=== PATIENT | female | born 1945 | race Caucasian/White ===

== ENCOUNTER 2017-02-16 08:59 | Day surgery (SDC) | payer OTHER, BC ==
[2017-02-16] MEDS ORDERED: LIDOCAINE 2% JELLY 20 ML (UROJECT) ONE (09:29)
[2017-02-16] MEDS ORDERED: BUPIVACAINE/EPI 0.25% 30 ML SDV ONE ×2 (09:30→11:19)
[2017-02-16] MEDS ORDERED: LIDOCAINE 1% 2 ML INJ ONE (09:38)
[2017-02-16] MEDS ORDERED: PROPOFOL 200 MG/20 ML VIAL ONE (09:40)
[2017-02-16] MEDS ORDERED: fentaNYL 100 MCG/2 ML INJ ONE (09:40)
[2017-02-16] MEDS ORDERED: LIDOCAINE 1% 5 ML SDV ID PRN (10:12)
[2017-02-16] MEDS ORDERED: LR 1,000 ML IV ONE (10:12)
[2017-02-16] MEDS ORDERED: MIDAZOLAM 2 MG/2 ML VIAL ONE (10:44)
--- NOTE | 2017-02-16 17:33 | GOP ---
[f rep st] OPERATIVE REPORT DATE OF OPERATION: 02/16/2017 SURGEON: Ash Cintron MD ORDINARY SEAMAN: None. ANESTHESIA: General endotracheal per Dr. Weaver. PREOPERATIVE DIAGNOSIS: Symptomatic internal and external hemorrhoids. POSTOPERATIVE DIAGNOSIS: Symptomatic internal and external hemorrhoids. PROCEDURE PERFORMED: Closed hemorrhoidectomy x2 columns. FINDINGS: Inflamed right anterior and left lateral hemorrhoids; internal and external columns excis ed completely. SPECIMENS: Hemorrhoids x2. ESTIMATED BLOOD LOSS: 10 cc. DESCRIPTION OF PROCEDURE: The patient was greeted in the preoperative suite. Once again, risks, be nefits, and alternatives were discussed. Consent was signed. She was then brought back to the oper ative suite, where anesthetic was successfully induced with her on her medical gurney. After succes sful induction, she was then flipped into the prone position. Once in the prone position, with all pressure points appropriately padded, her anorectal area was prepped and draped in typical sterile f ashion. Prior to doing so, a [employer] time-out was performed. Once successfully p repped and draped, I turned my attention first toward the left lateral column, which had a fairly la rge skin tag and external component. Placing my a bivalve retractors successfully into the patient' s anus, I identified what appeared to be a hypertrophied internal component, as well. Placing a sti tch of 3-0 Vicryl at the superior portion of the column, I successfully ligated the proximal portion . Using a 15-blade scalpel, I outlined my area of excision, which was completed with Metzenbaum sci ssors, taking care to not enter the underlying sphincter complex. The specimen was then passed off. Hemostasis was achieved with gentle pressure and electrocautery. Once hemostasis was assured, I c losed the overlying anoderm with a running 3-0 stitch already placed, noting excellent reapproximati on and good hemostasis. After this was done, I then turned my attention toward the right anterior h emorrhoid, which was enlarged with a fairly large external component, as well. In the same fashion, on the superior portion of the pile, I placed an interrupted 3-0 Vicryl stitch. I then sharply exc ised the hemorrhoid, including both the internal and external components, with a combination of a 15 -blade scalpel and Metzenbaum scissors. Hemostasis was achieved in the same fashion. The anoderm w as then reapproximated with a running 3-0 Vicryl stitch. Hemostasis was assured in both cavities. I then created a field block consisting of 0.25% Marcaine with epinephrine. After this was done, I placed a thrombin-soaked lidocaine piece of Gelfoam into the patient's anorectal area, using the Pra tt bivalve retractor. I then removed all my retractors, once again noted that hemostasis was good, reduced my retraction, and a sterile dressing was placed. The patient was then flipped back onto [facility], extubated, and taken to the PACU in satisfactory condition. DRAINS: None. COUNTS: All counts were reported as correct x2. /[id number]/MODL
== END 2017-02-16 14:00 | disposition home or self-care (01) ==
LOC: FSGY 08:59
PROVIDERS: ATTEND Surgery
PROC: 06BY3ZC Excision of Hemorrhoidal Plexus, Percutaneous Approach (ICD-10-PCS; principal; 2017-02-16 10:15)
DX: K64.4 Residual hemorrhoidal skin tags (principal); K64.8 Other hemorrhoids; I10 Essential (primary) hypertension; K21.9 Gastro-esophageal reflux disease without esophagitis
CPT/HCPCS: J2250; J2704; J3010

== ENCOUNTER → 2018-03-07 | Outpatient (CLI) | payer OTHER, BC | LOC: BRMIMAGING 09:29 | PROVIDERS: ATTEND Internal Medicine | DX: Z13.820 Encounter for screening for osteoporosis (principal); M85.89 Other specified disorders of bone density and structure, multiple sites ==

== ENCOUNTER → 2018-03-09 | Outpatient (CLI) | payer OTHER, BC | LOC: BHFA 15:30 | PROVIDERS: ATTEND Internal Medicine Cardiovascular Disease | DX: I73.9 Peripheral vascular disease, unspecified (principal) ==

== ENCOUNTER → 2018-03-31 | Outpatient (CLI) | payer OTHER, BC | LOC: BHLMT 09:15 | PROVIDERS: ATTEND Internal Medicine Interventional Cardiology | DX: I65.22 Occlusion and stenosis of left carotid artery (principal) ==